=== PATIENT | female | born 1995 | race Caucasian/White ===

== ENCOUNTER 2017-01-08 11:10 | Day surgery (SDC) | payer OTHER ==
--- NOTE | 2016-12-21 07:03 | HP ---
PREOPERATIVE HISTORY AND PHYSICAL: DATE OF SURGERY: 01/08/17 - [facility] DATE OF OFFICE VISIT: 12/20/16 ATTENDING SURGEON: Dr. Vanessa Samuels * (DICTATED BY STAN KELLER) PROCEDURE: Right knee arthroscopic partial meniscectomy, possible repair. HISTORY OF PRESENT ILLNESS: Geremias is a 21-year-old female who presents to the clinic for right knee pain and catching medially due to a meniscus tear. 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 She has failed conservative measures and has therefore agreed to undergo a right knee arthroscopy, partial meniscectomy, possible repair with Dr. Samuels on 01/08/17. PAST MEDICAL HISTORY: No current problems. PAST SURGICAL HISTORY: Tonsillectomy in 2001. She denies prior complications with anesthesia. MEDICATIONS: 1. Iron sulfate one by mouth daily. 2. Falmina 0.1 - 20 mg/mcg one by mouth every day. 3. Spironolactone 25 mg one by mouth every day. 4. Clindamycin phosphate 1% apply twice daily to the affected areas. 5. Tretinoin 0.25% apply to affected area at bedtime. 6. Diclofenac sodium as needed for pain. ALLERGIES: CEFZIL. FAMILY HISTORY: Both grandfathers with stroke and paternal aunt with stroke and family history of hypertension. SOCIAL HISTORY: She is a physical therapy student. She denies tobacco use. She reports she has occasional alcohol consumption. She is cross-country runner. She is a [employer] student. She is right hand dominant. REVIEW OF SYSTEMS: A 14-point review of systems was reviewed with the patient. Positive for current complaint, otherwise negative. PHYSICAL EXAMINATION GENERAL: A 21-year-old well-developed, well-nourished, female, in no acute distress. Alert and oriented x3. Appropriate mood and affect. VITAL SIGNS: Height 70, weight 125, pulse 60, blood pressure 118/68, respiratory rate 14, temperature 97.4, and BMI 17.9. HEENT: Normocephalic, atraumatic. PERRLA. Throat clear. NECK: Supple. PULMONARY: Lungs are clear to auscultation bilaterally. No wheezing, rhonchi, or rales. CARDIAC: Regular rate and rhythm. S1 and S2. No murmurs, gallops, or rubs. No edema. ABDOMEN: Positive bowel sounds. Soft, nontender. NEURO: Alert and oriented x3. Cranial nerves grossly intact. Sensation intact to light touch. MUSCULOSKELETAL: Right lower extremity: Skin is intact. Trace effusion. Range of motion is 0 to 130. Stable varus and valgus stress, stable Salud, negative posterior drawer. Tenderness over the medial joint line. Positive Med. Pain with deep flexion. Pain with deep squat. Calves soft and nontender. +2 PT pulse. Sensation intact to light touch distally. DIAGNOSTIC STUDIES: MRI reveals increased signal in the medial meniscus consistent with the medial meniscus tear. IMPRESSION: Right knee medial meniscus tear. PLAN: The patient is scheduled to undergo a right knee arthroscopy, partial meniscectomy, possible repair with Dr. Samuels on 01/08/17. The patient is contemplating options and is leaning towards meniscectomy. She will follow up 10 to 14 days postop. Percocet was sent for postoperative pain management and clindamycin for antibiotic prophylaxis. She will follow up in 10 to 14 days postop for followup and suture removal. STAN KELLER [id number]/[facility] #: [id number] MTDRiley
[~2017-01-08 11:10] MED LIST: Buffered Lidocaine 0.9% SYRIN* 5 ML/SYR SYRINGE INTRADERM ONE; Dexamethasone IV* 4 MG/ML 1 ML (4 MG) IV SLOW PU ONE; Famotidine IV* 10 MG/ML 2 ML (20 mg) IV ONE
[2017-01-08] MEDS ORDERED: Dexamethasone IV* 4 MG/ML 1 ML (4 MG) ONE (11:36)
[2017-01-08] MEDS ORDERED: Famotidine IV* 10 MG/ML 2 ML (20 mg) ONE (11:36)
[2017-01-08] MEDS ORDERED: Clindamycin 900 MG IVPREMIX(* 900 MG/50 ML SDV IV ONE (11:40)
[2017-01-08] MEDS ORDERED: fentaNYL* 50 MCG/ML 5 ML VIAL (250 MCG VIAL) ONE (12:10)
[2017-01-08] MEDS ORDERED: Propofol* 10 MG/ML 20 ML BTL IV PUSH ONE (12:10)
[2017-01-08] MEDS ORDERED: Midazolam* 1 MG/ML 5 ML VIAL (5 MG) ONE (12:10)
[2017-01-08] MEDS ORDERED: Ondansetron INJ* 2 MG/ML VIAL ONE ×2 (12:10→14:52)
[2017-01-08] MEDS ORDERED: Lidocaine 2% PF * 5 ML VIAL ONE (12:10)
[2017-01-08] MEDS ORDERED: Ketorolac INJ* 30 MG/ML 1 ML VIAL ONE (12:10)
[2017-01-08] MEDS ORDERED: Bupivacaine 0.25% SDV* 30 ML ONE (12:11)
[2017-01-08] MEDS ORDERED: Lidocaine 1% MPF wEPI 200,000* 30 ML SDV ONE (12:11)
[2017-01-08] MEDS ORDERED: oxyCODONE/Acetamin 5/325 MG* TAB PO PRN (13:36)
[2017-01-08] MEDS ORDERED: fentaNYL* 50 MCG/ML 2 ML VIAL (100 MCG VIAL) IV PRN (13:36)
[2017-01-08] MEDS ORDERED: Ondansetron INJ* 2 MG/ML VIAL IV PRN (13:36)
[2017-01-08] MEDS ORDERED: DiMENhydriNATE IV* 50 MG/ML VIAL IV PUSH PRN (13:36)
[2017-01-08 15:33] VITALS: BP 127/83
--- NOTE | 2017-01-10 20:11 | OP ---
DATE OF OPERATION: 01/08/17 [facility] DATE OF : 89 SURGEON: Vanessa Samuels MD. CLOTH WASHER BACK TENDER: STAN Scott. ANESTHESIOLOGIST: Dr. Arnoldo Titus. ANESTHESIA: General. PRE-OP DIAGNOSIS: Right knee medial meniscus tear. POST-OP DIAGNOSIS: Right knee medial meniscus tear as well as plica. OPERATIVE PROCEDURE: Right knee partial medial meniscectomy with plica excision. COMPLICATIONS: None. ESTIMATED BLOOD LOSS: Minimal. TOURNIQUET TIME: Zero minutes. IMPLANTS: None. 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 She had been struggling and was diagnosed with patellofemoral pain syndrome. She had also catching and locking symptoms consistent with the medial meniscus tear with concern on MRI. She underwent extensive physical therapy and continued to have persistent symptoms. She is a track and field athlete and was unable to get back to her activities of daily living. Risks and benefits of surgery versus nonoperative treatment were discussed at length. She was encouraged to proceed with meniscus repair, but she declined due to her busy physical therapy schedule. It was advised that she is at higher risk of arthritis with resection. She chose meniscectomy. The risks include but are not limited to, bleeding, infection, damage to nerves, vessels, surrounding structures, the wound nonhealing, persistent pain, need for further surgery, scarring, stiffness, incomplete relief of symptoms, and risks of anesthesia. DESCRIPTION OF PROCEDURE: The patient was greeted in the preoperative area by the attending surgeon. Correct extremity was marked and consent was confirmed. The patient was brought back to the operating suite where she was placed in a supine position on the operating room table, after which a tourniquet was placed high on the proximal thigh as well as the lateral post. The right leg was prepped and draped in the usual sterile fashion beginning with chlorhexidine soap, scrub and alcohol wipe, and a final prep with ChloraPrep. After appropriate surgical pause indicating site, side, procedure, and administration of antibiotics, the knee was intra-articularly injected with 1% lidocaine. The lateral portal was then made using 11-blade. The scope was then introduced into the joint and the joint was examined. The patellofemoral joint had areas of grade 0 changes and the inferior pole of the patella had softening and grade 1 changes to the patella with no obvious loose fragment. There was a small plica that was present medially. The medial portal was made in an outside-in fashion. The shaver was used to debride back the plica. The medial and lateral gutters were intact. ACL and PCL were intact. The medial femoral condyle was examined and had grade 0 changes. The medial plateau had grade 0 changes. The meniscus had an undersurface tear along the medial rim, but not necessarily posteriorly. This was probed and able to be displaced. The scope was placed in a [id number] position. Lateral femoral condyle and lateral plateau had grade 0 to 1 changes. The lateral meniscus was intact. Lateral compartment had a small amount of lateral fraying, which was debrided back to a stable layer, the remainder of the meniscus was intact. At this point , attention was directed to the medial meniscus, which was then carefully partial meniscectomy was done to try to preserve as much of the normal meniscus as possible and just take care of the area of interest. After this was complete , the remainder of the meniscus was found to be stable. The knee was thoroughly lavaged and the portals were irrigated with sterile saline. The portals were closed with 3-0 nylon. The knee was intraarticularly injected with 0.25% Marcaine plain. She awoken from anesthesia and transferred to PACU in stable condition. Post op plan: She will be WBAT with crutches for 3-5 days. Discharged on pain meds. DVT ppx was discussed but deferred due to no previous or personal history. She will follow up in 10-14 days. [id number]/[facility] #: [id number] ASHLEY
== END 2017-01-08 15:29 | disposition home or self-care (01) ==
LOC: OREAST 11:10
PROVIDERS: ATTEND Orthopaedic Surgery
DX: S83.241A Other tear of medial meniscus, current injury, right knee, initial encounter (principal); M67.51 Plica syndrome, right knee; X50.3XXA Overexertion from repetitive movements, initial encounter; Y93.69 Activity, other involving other sports and athletics played as a team or group; Y92.39 Other specified sports and athletic area as the place of occurrence of the external cause; Y99.8 Other external cause status
CPT/HCPCS: 81025; J1100; J1885; J2001; J2250; J2405; J2704; J3010